=== PATIENT | male | born 1970 | race African-American/Black ===

== ENCOUNTER 2019-11-10 09:07 | Day surgery (SDC) | payer OTHER ==
[2019-11-09 08:18] VITALS: BMI 25.7
--- NOTE | 2019-11-10 11:36 | HP ---
History & Physical Update - History History: No Change - Physical Physical: No Change - Assessment Assessment: No Change - Plan Plan: No Change
[2019-11-10] MEDS ORDERED: LIDOCAINE HCL 1% EPINEPHRINE 1:200,000 30 ML VIAL (PF) ONE (11:46)
[2019-11-10] MEDS ORDERED: LIDOCAINE HCL 1%, 10 MG/ML (20ML VIAL) ONE (11:46)
[2019-11-10] MEDS ORDERED: BACITRACIN 15 GM TUBE TOPICAL OINTMENT ONE (12:02)
[2019-11-10] MEDS ORDERED: MIDAZOLAM HCL 2 MG/2 ML SINGLE DOSE VIAL ONE (12:10)
[2019-11-10] MEDS ORDERED: LIDOCAINE HCL 1%, 10 MG/ML (20ML VIAL) INF ONE (12:46)
--- NOTE | 2019-11-10 12:59 | OP ---
Operative Note - Note: Operative Date: 11/10/19 Pre-Operative Diagnosis: scalp mass Operation: Excision scalp mass Findings: 2 cm fibrofatty scalp mass Post-Operative Diagnosis: Same as Pre-op Surgeon: Ben Montaño Anesthesiologist/[employer] SUPERVISOR: Danii Alatorre Anesthesia: Local, MAC Estimated Blood Loss (mls): 10 Operative Report Dictated: Yes
[2019-11-10 14:12] VITALS: BP 141/80; PULSE 58; TEMP 97.6
[2019-11-10] MEDS ORDERED: ONDANSETRON 4 MG/2 ML VIAL IVPUSH PRN (15:01)
[2019-11-10] MEDS ORDERED: oxyCODONE HCL 5 MG TABLET PO PRN (15:01)
[2019-11-10] MEDS ORDERED: LACTATED RINGERS SOLUTION 1,000 ML IV SCH (15:15)
--- NOTE | 2019-11-10 15:50 | OP ---
DATE OF OPERATION: 11/10/2019 PROCEDURE: Excision biopsy of a right temporoparietal scalp mass. PREOPERATIVE DIAGNOSIS: Right temporoparietal scalp mass. POSTOPERATIVE DIAGNOSIS: Right temporoparietal scalp mass. SURGEON: Ben Montaño MD ANESTHESIA: Local with sedation. FINDINGS AND PROCEDURE: This is a 48-year-old male who presents with 5-year history of a slowly growing soft tissue mass of the scalp at the right temporoparietal area. On physical exam, patient has a 2.5 x 2.5 cm soft tissue mass moveable with well-defined borders and a bald spot over the mass, so patient was advised excision of the mass. Informed consent was obtained after discussing the risks, benefits , and alternatives to the procedure. Patient was brought to the operating room and placed in beach chair position. Intravenous sedation was given by the Anesthesia team. The operative site was prepped and draped in the usual sterile fashion. Using lidocaine 1% with epinephrine, serial block anesthesia was administered. A 2-cm elliptical incision using scalpel blade No. 15 was done using dissection carried down to the deep dermis. Further dissection using Metzenbaum scissors and Bovie cautery was done until the fibrofatty mass was completely excised down to the periosteum. Hemostasis was achieved using Bovie cautery. The wound was then closed with skin harshil and dressed with bacitracin ointment. Patient was transferred to ambulatory surgery unit in satisfactory condition. Estimated blood loss was around 10 mL. Wound class clean. Mckayla [id number] MTDD
--- NOTE | 2019-11-15 19:25 | PATH ---
Surgical Pathology Report Patient Name: ZANDER BARBER Med. Rec. #: [id number] /Age/Gender: 1970 (Age: 48) / M Account: [id number] Location: [facility] Taken: 11/10/2019 Received: 11/10/2019 Reported: 11/15/2019 Physicians: Ben Montaño M.D. Specimen(s) Received MASS OF SCALP Clinical History Scalp mass Final Diagnosis SCALP MASS, EXCISION: PORTION OF SKIN WITH MATURE ADIPOSE TISSUE, CONSISTENT WITH LIPOMA. Electronically Signed Zahraa Friend M.D. Gross Description Received in formalin labeled "scalp mass," is a 2.4 x 1.6 x 1.5 cm yellow portion of adipose tissue which is surfaced by a 2.1 x 0.6 cm mccollum, elliptical, unremarkable portion of skin. Sectioning reveals homogeneous yellow lobulated adipose tissue. Proof Passer sections are submitted in one cassette. /11/13/2019 saudi11/13/2019
== END 2019-11-10 14:20 | disposition home or self-care (01) ==
LOC: JASU-SURG 09:07
PROVIDERS: ATTEND Surgery
PROC: 0JB00ZZ Excision of Scalp Subcutaneous Tissue and Fascia, Open Approach (ICD-10-PCS; principal; 2019-11-10 10:40)
DX: D48.1 Neoplasm of uncertain behavior of connective and other soft tissue (principal)
CPT/HCPCS: 88304-TC